=== PATIENT | female | born 1965 ===

== ENCOUNTER 2022-01-27 09:22 | Outpatient (CLI) | payer OTHER | END 2022-01-27 09:36 | disposition home or self-care (01) | LOC: NUCLEAR 09:22 | PROVIDERS: ATTEND Psychiatry & Neurology Neurology | DX: G30.9 Alzheimer's disease, unspecified (principal) | CPT/HCPCS: 78803; A9557 ==

== ENCOUNTER 2022-10-12 10:29 | Outpatient (CLI) | payer OTHER | END 2022-10-12 13:33 | disposition home or self-care (01) | LOC: MRI 10:29 | PROVIDERS: ATTEND Psychiatry & Neurology Neurology | DX: G91.2 (Idiopathic) normal pressure hydrocephalus (principal); R41.89 Other symptoms and signs involving cognitive functions and awareness | CPT/HCPCS: 70553 ==

== ENCOUNTER 2022-10-12 11:22 | Outpatient (CLI) | payer OTHER | END 2022-10-12 11:41 | disposition home or self-care (01) | LOC: LAB 11:22 | PROVIDERS: ATTEND Radiology Diagnostic Radiology | DX: G91.2 (Idiopathic) normal pressure hydrocephalus (principal) ==